=== PATIENT | male | born 1935 | race Caucasian/White ===

== ENCOUNTER 2017-05-08 05:20 | Emergency (ER) | payer MEDICARE, SELFPAY ==
[~2017-05-08] VITALS: Ht 182.9 cm; Wt 68.0 kg
[~2017-05-08 05:20] MED LIST: ALPR.5; ASPI325 PO; ASPI81CH PO; ATOR40TA PO; CARDURA; CHOL10002 PO; CIPR500; CIPR500 PO; CLON.5 PO; CLON1 PO; CLOP75 PO; Cipro500 MG PO; DOXA4 PO; HYDACE5; LISI20 PO; LISI5 PO; LORA.5 PO; LOVA40 PO; OXYACE5T PO; PHENA200 PO; RANI150 PO; ROSU10TA; RXPHEN200 PO; SULTRIDS PO; TAMS.4ER; [UNRECOGNIZED DRUG - OTHER]; [UNRECOGNIZED DRUG - REMARK]
[2018-02-16] MEDS ORDERED: Amiodarone HCl200 MG PO (23:52)
[2018-02-17] MEDS ORDERED: CEPH500 PO (00:21)
== END 2017-05-08 07:22 | disposition home or self-care (01) ==
LOC: ER 05:20
DX: S20.212A Contusion of left front wall of thorax, initial encounter (principal); F41.9 Anxiety disorder, unspecified; F17.200 Nicotine dependence, unspecified, uncomplicated; Z79.899 Other long term (current) drug therapy; Z79.82 Long term (current) use of aspirin; W22.8XXA Striking against or struck by other objects, initial encounter
CPT/HCPCS: 71046; 99283

== ENCOUNTER 2017-05-30 13:37 | Emergency (ER) | payer MEDICARE, SELFPAY ==
[~2017-05-30] VITALS: Ht 185.4 cm; Wt 68.0 kg
[2017-05-30 13:45] LABS: Calcium, Ionized (POC) 1.14 mmol/L (1.10-1.46); Chloride (POC) 104 mmol/L (98-108); Glucose (ISTAT POC) 129 mg/dL (70-99); Potassium (POC) 4.1 mmol/L (3.5-5.5); Sodium (POC) 136 mmol/L (135-148); Total CO2 (POC) 20 mmol/L (21-32)
[2017-05-30 14:18] LABS: BASOPHILS ABSOLUTE AUTO 0.04 K/mm3 (0.00-0.23); BASOPHILS PERCENT AUTO 0 % (0-2); EOSINOPHILS ABSOLUTE AUTO 0.08 K/mm3 (0.00-0.68); EOSINOPHILS PERCENT AUTO 1 % (0-6); Hematocrit 42.6 % (37.0-53.0); IMMATURE GRAN ABSOLUTE AUTO 0.03 K/mm3 (0.00-0.10); IMMATURE GRAN PERCENT AUTO 0 % (0-1); LYMPHOCYTES ABSOLUTE AUTO 2.12 K/mm3 (0.84-5.20); LYMPHOCYTES PERCENT AUTO 21 % (21-46); MONOCYTES ABSOLUTE AUTO 0.71 K/mm3 (0.16-1.47); MONOCYTES PERCENT AUTO 7 % (4-13); Mean Corpuscular HGB 27.2 pg (26.0-34.0); Mean Corpuscular HGB Conc 32.9 g/dL (31.5-36.5); Mean Corpuscular Volume 83 fL (80-100); Mean Platelet Volume 9.7 fL (9.1-12.4); NEUTROPHILS ABSOLUTE AUTO 7.24 K/mm3 (1.96-9.15); NEUTROPHILS PERCENT AUTO 71 % (41-73); Platelet Count 248 K/mm3 (150-400); RDW Coefficient Variation 19.4 % (11.7-14.2); Red Blood Cell Count 5.14 M/mm3 (4.30-5.90); White Blood Cell Count 10.22 K/mm3 (4.00-11.30)
[2017-05-30 14:18] LABS: Source, Urine Voided
[2017-05-30 14:21] LABS: Appearance, Urine Bloody (Clear); Bilirubin, Urine Neg (Neg); Blood, Urine 4+ (Neg); Color, Urine Red (P-Yellow); Glucose Qualitative, Urine Neg (Neg); Ketones, Urine Neg (Neg); Leukocyte Esterase, Urine Neg (Neg); Nitrite, Urine Neg (Neg); Protein, Urine 4+ (Neg); Urobilinogen, Urine NORM (Normal)
[2017-05-30 14:32] LABS: Alanine Aminotransfer (ALT/SGP 27 U/L (12-78); Albumin, Blood 3.1 g/dL (3.4-5.0); Albumin/Globulin Ratio 0.7 (0.8-1.8); Alk Phos 161 U/L (50-136); Anion Gap 11 mmol/L (6-16); Aspartate Aminotrans (AST/SGOT 18 U/L (12-37); Bilirubin, Total 0.6 mg/dL (0.1-1.0); Blood Urea Nitrogen 19 mg/dL (8-24); Bun/Creatinine Ratio 17.1 (12.0-20.0); CO2, Blood 19 mmol/L (21-32); Calcium, Blood 8.6 mg/dL (8.5-10.1); Chloride, Blood 105 mmol/L (98-108); Creatinine, Blood 1.11 mg/dL (0.60-1.20); Globulin, Blood 4.4 g/dL (2.2-4.0); Glomerular Filtration Rate >60 (60-); Glucose, Blood 124 mg/dL (70-99); Potassium, Blood 4.2 mmol/L (3.5-5.5); Sodium, Blood 135 mmol/L (136-145); Total Protein, Blood 7.5 g/dL (6.4-8.2); Troponin I <0.015 ng/mL (0.000-0.040)
[2017-05-30 14:36] LABS: Bacteria Rare /hpf; Red Blood Cells, Urine TNTC /hpf (0-2); Squamous Epithelial Cells Not Seen /hpf (Few)
[2018-02-16] MEDS ORDERED: Amiodarone HCl200 MG PO (23:52)
[2018-02-17] MEDS ORDERED: CEPH500 PO (00:21)
== END 2017-05-30 17:10 | disposition home or self-care (01) ==
LOC: ER 13:37
PROVIDERS: Emergency Medicine
DX: R31.9 Hematuria, unspecified (principal); R33.9 Retention of urine, unspecified; I25.2 Old myocardial infarction; F41.9 Anxiety disorder, unspecified; R42 Dizziness and giddiness; R05 Cough; F17.200 Nicotine dependence, unspecified, uncomplicated; Z79.82 Long term (current) use of aspirin; Z79.899 Other long term (current) drug therapy; Z90.79 Acquired absence of other genital organ(s); Z95.5 Presence of coronary angioplasty implant and graft
CPT/HCPCS: 36415; 51702; 80047; 80053; 81001; 84484; 85014; 85025; 93005; 93010; 96360; 96361; 99283; J7030

== ENCOUNTER 2018-03-04 12:31 | Emergency (ER) | payer MEDICARE, OTHER ==
[~2018-03-04] VITALS: Ht 182.9 cm; Wt 77.1 kg
[~2018-03-04 12:31] MED LIST changes: +Amiodarone HCl200 MG PO; +CEPH500 PO
[2018-03-04 13:03] LABS: Source, Urine Catheter
[2018-03-04 13:15] LABS: Bilirubin, Urine Neg (Neg); Blood, Urine 5+ (Neg); Glucose Qualitative, Urine Neg (Neg); Ketones, Urine Neg (Neg); Leukocyte Esterase, Urine 3+ (Neg); Nitrite, Urine Neg (Neg); Protein, Urine 3+ (Neg); Urobilinogen, Urine NORM (Normal)
[2018-03-04 13:16] LABS: BASOPHILS ABSOLUTE AUTO 0.03 K/mm3 (0.00-0.23); BASOPHILS PERCENT AUTO 1 % (0-2); EOSINOPHILS ABSOLUTE AUTO 0.02 K/mm3 (0.00-0.68); EOSINOPHILS PERCENT AUTO 0 % (0-6); Hematocrit 35.5 % (37.0-53.0); Hemoglobin 11.4 g/dL (13.5-17.5); IMMATURE GRAN ABSOLUTE AUTO 0.03 K/mm3 (0.00-0.10); IMMATURE GRAN PERCENT AUTO 1 % (0-1); LYMPHOCYTES ABSOLUTE AUTO 1.47 K/mm3 (0.84-5.20); LYMPHOCYTES PERCENT AUTO 22 % (21-46); MONOCYTES ABSOLUTE AUTO 0.36 K/mm3 (0.16-1.47); MONOCYTES PERCENT AUTO 5 % (4-13); Mean Corpuscular HGB 24.7 pg (26.0-34.0); Mean Corpuscular HGB Conc 32.1 g/dL (31.5-36.5); Mean Corpuscular Volume 77 fL (80-100); Mean Platelet Volume 9.6 fL (9.1-12.4); NEUTROPHILS ABSOLUTE AUTO 4.72 K/mm3 (1.96-9.15); NEUTROPHILS PERCENT AUTO 71 % (41-73); Platelet Count 229 K/mm3 (150-400); RDW Coefficient Variation 20.3 % (11.7-14.2); RDW Standard Deviation 55.6 fL (35.1-46.3); Red Blood Cell Count 4.62 M/mm3 (4.30-5.90); White Blood Cell Count 6.63 K/mm3 (4.00-11.30)
[2018-03-04 13:28] LABS: Alanine Aminotransfer (ALT/SGP 25 U/L (12-78); Albumin, Blood 2.6 g/dL (3.4-5.0); Albumin/Globulin Ratio 0.6 (0.8-1.8); Alk Phos 154 U/L (50-136); Anion Gap 9 mmol/L (6-16); Aspartate Aminotrans (AST/SGOT 29 U/L (12-37); Bilirubin, Total 0.3 mg/dL (0.1-1.0); Blood Urea Nitrogen 16 mg/dL (8-24); Bun/Creatinine Ratio 13.1 (12.0-20.0); CO2, Blood 21 mmol/L (21-32); Calcium, Blood 8.4 mg/dL (8.5-10.1); Chloride, Blood 105 mmol/L (98-108); Creatinine, Blood 1.22 mg/dL (0.60-1.20); Globulin, Blood 4.1 g/dL (2.2-4.0); Glomerular Filtration Rate >60 (60-); Glucose, Blood 122 mg/dL (70-99); Potassium, Blood 4.2 mmol/L (3.5-5.5); Sodium, Blood 135 mmol/L (136-145); Total Protein, Blood 6.7 g/dL (6.4-8.2)
[2018-03-04 14:02] LABS: Appearance, Urine Hazy (Clear); Color, Urine Yellow (P-Yellow)
[2018-03-04 14:05] LABS: Bacteria Mod /hpf; Red Blood Cells, Urine 25-50 /hpf (0-2); Squamous Epithelial Cells Few /hpf (Few)
== END 2018-03-04 14:50 | disposition home or self-care (01) ==
LOC: ER 12:31
PROVIDERS: Internal Medicine
DX: K59.00 Constipation, unspecified (principal); Z79.899 Other long term (current) drug therapy; Z79.82 Long term (current) use of aspirin; F41.9 Anxiety disorder, unspecified; F17.200 Nicotine dependence, unspecified, uncomplicated
CPT/HCPCS: 74022; 80053; 81001; 85025; 87086; 99284-25

== ENCOUNTER 2018-03-05 11:29 | Emergency (ER) | payer MEDICARE, SELFPAY ==
[~2018-03-05] VITALS: Ht 182.9 cm; Wt 63.5 kg
== END 2018-03-05 14:48 | disposition home or self-care (01) ==
LOC: ER 11:29
DX: K59.00 Constipation, unspecified (principal); N20.0 Calculus of kidney; Z79.899 Other long term (current) drug therapy; Z79.82 Long term (current) use of aspirin; F41.9 Anxiety disorder, unspecified; I25.2 Old myocardial infarction; F17.200 Nicotine dependence, unspecified, uncomplicated
CPT/HCPCS: 74018; 99283-25

== ENCOUNTER 2018-04-02 12:18 | Inpatient (IN) | payer MEDICARE, OTHER ==
[~2018-04-02] VITALS: Ht 185.4 cm; Wt 60.6 kg
[2018-04-02 13:57] LABS: BASOPHILS ABSOLUTE AUTO 0.01 K/mm3 (0.00-0.23); BASOPHILS PERCENT AUTO 0 % (0-2); EOSINOPHILS ABSOLUTE AUTO 0.01 K/mm3 (0.00-0.68); EOSINOPHILS PERCENT AUTO 0 % (0-6); Hematocrit 37.1 % (37.0-53.0); Hemoglobin 11.8 g/dL (13.5-17.5); IMMATURE GRAN ABSOLUTE AUTO 0.05 K/mm3 (0.00-0.10); IMMATURE GRAN PERCENT AUTO 1 % (0-1); LYMPHOCYTES ABSOLUTE AUTO 1.34 K/mm3 (0.84-5.20); LYMPHOCYTES PERCENT AUTO 19 % (21-46); MONOCYTES ABSOLUTE AUTO 0.43 K/mm3 (0.16-1.47); MONOCYTES PERCENT AUTO 6 % (4-13); Mean Corpuscular HGB 24.8 pg (26.0-34.0); Mean Corpuscular HGB Conc 31.8 g/dL (31.5-36.5); Mean Corpuscular Volume 78 fL (80-100); Mean Platelet Volume 9.4 fL (9.1-12.4); NEUTROPHILS ABSOLUTE AUTO 5.41 K/mm3 (1.96-9.15); NEUTROPHILS PERCENT AUTO 75 % (41-73); Platelet Count 312 K/mm3 (150-400); Red Blood Cell Count 4.75 M/mm3 (4.30-5.90); White Blood Cell Count 7.25 K/mm3 (4.00-11.30)
[2018-04-02 14:21] LABS: Albumin, Blood 2.5 g/dL (3.4-5.0); Albumin/Globulin Ratio 0.5 (0.8-1.8); Bilirubin, Total 0.6 mg/dL (0.1-1.0); Bun/Creatinine Ratio 14.8 (12.0-20.0); Creatinine, Blood 2.9 mg/dL (0.60-1.20); Globulin, Blood 4.6 g/dL (2.2-4.0); Total Protein, Blood 7.1 g/dL (6.4-8.2)
[2018-04-02 14:51] LABS: Source, Urine Clean Catch
[2018-04-02 15:03] LABS: Appearance, Urine Cloudy (Clear); Bilirubin, Urine Neg (Neg); Blood, Urine 5+ (Neg); Color, Urine Red (P-Yellow); Glucose Qualitative, Urine Neg (Neg); Ketones, Urine Neg (Neg); Leukocyte Esterase, Urine 3+ (Neg); Nitrite, Urine Neg (Neg); Protein, Urine 2+ (Neg); Urobilinogen, Urine NORM (Normal)
[2018-04-02 15:12] LABS: Red Blood Cells, Urine TNTC /hpf (0-2); White Blood Cells, Urine 50-100 /hpf (0-5)
[2018-04-02 15:13] LABS: Squamous Epithelial Cells Few /hpf (Few)
[2018-04-02 15:15] LABS: Bacteria Mod /hpf
[2018-04-03 05:38] LABS: BASOPHILS ABSOLUTE AUTO 0.02 K/mm3 (0.00-0.23); BASOPHILS PERCENT AUTO 0 % (0-2); EOSINOPHILS ABSOLUTE AUTO 0.01 K/mm3 (0.00-0.68); EOSINOPHILS PERCENT AUTO 0 % (0-6); Hematocrit 33.2 % (37.0-53.0); Hemoglobin 10.5 g/dL (13.5-17.5); IMMATURE GRAN ABSOLUTE AUTO 0.04 K/mm3 (0.00-0.10); IMMATURE GRAN PERCENT AUTO 0 % (0-1); LYMPHOCYTES PERCENT AUTO 12 % (21-46); MONOCYTES ABSOLUTE AUTO 0.63 K/mm3 (0.16-1.47); MONOCYTES PERCENT AUTO 7 % (4-13); Mean Corpuscular HGB 24.4 pg (26.0-34.0); Mean Corpuscular HGB Conc 31.6 g/dL (31.5-36.5); Mean Corpuscular Volume 77 fL (80-100); Mean Platelet Volume 9.3 fL (9.1-12.4); NEUTROPHILS ABSOLUTE AUTO 7.64 K/mm3 (1.96-9.15); NEUTROPHILS PERCENT AUTO 81 % (41-73); Platelet Count 309 K/mm3 (150-400); RDW Coefficient Variation 19.7 % (11.7-14.2); RDW Standard Deviation 55.3 fL (35.1-46.3); Red Blood Cell Count 4.31 M/mm3 (4.30-5.90); White Blood Cell Count 9.44 K/mm3 (4.00-11.30)
[2018-04-03 05:52] LABS: Albumin, Blood 2.3 g/dL (3.4-5.0); Albumin/Globulin Ratio 0.5 (0.8-1.8); Bilirubin, Total 0.3 mg/dL (0.1-1.0); Bun/Creatinine Ratio 16.5 (12.0-20.0); Creatinine, Blood 2.54 mg/dL (0.60-1.20); Globulin, Blood 4.2 g/dL (2.2-4.0); Potassium, Blood 4.9 mmol/L (3.5-5.5); Total Protein, Blood 6.5 g/dL (6.4-8.2)
--- NOTE | 2018-04-03 07:23 | NUR ---
SHIFT SUMMARY 2039 RECEIVED PT TO RM 343 VIA GURNEY FROM ER. PT TO ER VIA EMS WITH C/O CHRONIC CONSTIPATION, URINARY RETENSION, AND KIDNEY STONES. PT TO HAVE LITHOTRIPSY ON THU FOR STONE. RECEIVED REPORT FROM KRISTINA GLEZ, PT WITH BLADDER OVER DISTENSION; STRAIGHT CATH DONE IN ER WITH PINK URINE AND SM CLOTS. GAGE CATH LATER PLACED WITH CL YELLOW OUT AT FIRST WITH PINK URINE TO FOLLOW SINCE THEN. UA OBTAINED AND SENT IN ER SHOWING POSSIBLE UTI. PT GIVEN ROCEPHIN AND ZOFRAN FOR NAUSEA IN ER. PT SENT UP 20G IV TO LW, BUT STARTED LEAKING IMMEDIATELY. NEW 18G IV PLACED TO LFA; PT TOLERATED WELL. PT REPORTED NO BM FOR 6 DAYS, BUT HAD NOT BEEN EATING OR DRINKING FOR ABOUT THAT MANY DAYS WELL. BOWEL CARE ORDERED WELL NGT. PT DECLINED NGT AND SOME OF BOWEL CARE. STARTED WITH "STOOL SOFTNER" FIRST PER PT AND THEN SUPPOSITORY. SM AMT OF HARD FORMED STOOL OUT ON BSC. PT THEN AGREED TO MIRALAX, GIVEN IN APPLE JUICE. SEVERAL HOURS LATER PT VOMITED ALL OF JUICE/MIRALAX. PT THEN AGREED TO NGT. PT TOLERATED NGT PLACEMENT WELL. 100cc DRK BRW LIQUID STOOL OUT. PT RESTING QUIETLY AT THIS TIME. BED ALARM ON FOR SAFETY. CALL LT IN REACH.
[2018-04-03 12:23] LABS: Magnesium, Blood 2.2 mg/dL (1.6-2.4)
--- NOTE | 2018-04-03 18:17 | NUR ---
SHIFT SUMMARY NENA WAS FEELING VERY ILL AT THE BEGINNING OF THE SHIFT. HOWEVER, NG TUBE WAS PLACED JUST BEFORE SHIFT CHANGE BY NIGHT RN AND SUCTION (LOW INTERMITTENT)STARTED AT 0700. WITHIN FIRST 2 HOURS, HAD 400ML OUT AND HE WAS FEELING MUCH BETTER. GAGE INTACT AND DRAINING WELL WITH RED URINE (THIS HAS BEEN A PROBLEM FOR HIM). BELLY VERY TIGHT AND FIRM, BUT PT LOOKING MUCH MORE COMFORTABLE. PT NOW ON CLEARS DIET AND TOLERATIGN WELL. MIRALAX AND SUPPOSITORY GIVEN TO ASSIST PT TO HAVE BEM. SBA TO FOR ABD XR THIS MORNING. TRIALING ON CLAMPED NGT AT THIS TIME, TOLERATING WELL SO FAR. STATES PAINFUL BUT DECLINES ANYTHING BUT TYLENOL. TPN STARTED, TOLERATING WELL. CBGS Q6 INITIATED. WCTM
--- NOTE | 2018-04-04 04:41 | NUR ---
SHIFT SUMMARY PT ADMITTED FOR ACUTE RENAL FAILURE. DNR. CLEAR LIQUID DIET. CATHETER FOR RETENTION WITH CHRONIC STONES. PT HAS LITHOTRIPSEY IN [place] SCHEDULED FOR NEXT WEEKS. CBG Q 6 HRS UNTIL STABLE OF IV NUTRITION, PT IS STABLE AND ON IV NUTRITION, WILL CHECK AGAIN THIS AM JUST TO CONFIRM. PPN AT 96 MLS/HR. NG TUBE WITH LOW INTERMITTENT SUCTION 18G IV TO L FA. MEDS WHOLE WITH WATER. 1 PERSON ASSIST TO BSC. LOVENOX FOR DVT PROPHYLAXIS. PT PRESENTED TO THE ED WITH COMPLAINTS OF ABD PAIN AND DISTENTION, NAUSEA AND VOMITING. PT HAS A HISTORY OF CHRONIC CONSTIPATION AND KEDNEY STONES. THE PT REPORTED NOT HAVING HAD A MB FOR 6 DAYS. PER REPORT THE PT S/SX ARE LIKELY SECONDARY TO AN ILEUS. NO DEFINITE OBSTRUCTION NOTED. THE PT IS SCHEDULED FOR KIDNEY STONE REMOVAL ON 04/07/18 WITH STENT REMOVAL 1 WEEK LATER. THE PT NOTIBLY DISLODGED NG TUBE MULTIPLE TIMES SO FAR THIS SHIFT PULLING AT THE TUBE AND HAVING TO HAVE TUBE RE-ADVANCE THROUGHOUT THE NIGHT. PT REPORTED PAIN TO NOSE AND THROAT SECONDARY TO THIS AND MEDICATED PER EMAR. FINAL TIME OF ATTEMPTING TO RE-ADVANCE TUBE, ASKED FOR ASSISTANCE AND DYLAN ZAYAS ADVANCED TUBE AND ASSISTED WITH TAPE PLACEMENT. THE PT WAS STRUGGLING TO SLEEP BUT EVENTUALLY FELL ASLEEP AFTER TUBE IN PLACE, AND PAIN MEDICATION. PT APPEARS TO BE SLEEPING COMFORTABLY AT THIS TIME WITH NO APPARENT SIGNS OF ACUTE DISTRESS. PT DID HAVE SEVERAL SMALL BMS TODAY. ABLE TO MAKE NEEDS KNOWN AND CALL LIGHT IN REACH.
[2018-04-04 05:26] LABS: BASOPHILS ABSOLUTE AUTO 0.01 K/mm3 (0.00-0.23); BASOPHILS PERCENT AUTO 0 % (0-2); EOSINOPHILS PERCENT AUTO 0 % (0-6); Hematocrit 31.3 % (37.0-53.0); Hemoglobin 10.2 g/dL (13.5-17.5); IMMATURE GRAN ABSOLUTE AUTO 0.06 K/mm3 (0.00-0.10); IMMATURE GRAN PERCENT AUTO 1 % (0-1); LYMPHOCYTES ABSOLUTE AUTO 0.98 K/mm3 (0.84-5.20); LYMPHOCYTES PERCENT AUTO 10 % (21-46); MONOCYTES ABSOLUTE AUTO 0.64 K/mm3 (0.16-1.47); MONOCYTES PERCENT AUTO 6 % (4-13); Mean Corpuscular HGB 25.2 pg (26.0-34.0); Mean Corpuscular HGB Conc 32.6 g/dL (31.5-36.5); Mean Corpuscular Volume 77 fL (80-100); Mean Platelet Volume 9.3 fL (9.1-12.4); NEUTROPHILS ABSOLUTE AUTO 8.45 K/mm3 (1.96-9.15); NEUTROPHILS PERCENT AUTO 83 % (41-73); Platelet Count 302 K/mm3 (150-400); RDW Coefficient Variation 19.1 % (11.7-14.2); RDW Standard Deviation 53.8 fL (35.1-46.3); Red Blood Cell Count 4.05 M/mm3 (4.30-5.90); White Blood Cell Count 10.14 K/mm3 (4.00-11.30)
[2018-04-04 06:16] LABS: Alanine Aminotransfer (ALT/SGP 16 U/L (12-78); Albumin, Blood 2.2 g/dL (3.4-5.0); Albumin/Globulin Ratio 0.5 (0.8-1.8); Alk Phos 150 U/L (50-136); Anion Gap 10 mmol/L (6-16); Aspartate Aminotrans (AST/SGOT 18 U/L (12-37); Bilirubin, Total 0.7 mg/dL (0.1-1.0); Blood Urea Nitrogen 48 mg/dL (8-24); Bun/Creatinine Ratio 21.8 (12.0-20.0); CO2, Blood 24 mmol/L (21-32); Calcium, Blood 9.1 mg/dL (8.5-10.1); Chloride, Blood 103 mmol/L (98-108); Globulin, Blood 4.1 g/dL (2.2-4.0); Glomerular Filtration Rate 31 (60-); Glucose, Blood 133 mg/dL (70-99); Magnesium, Blood 2.2 mg/dL (1.6-2.4); Phosphorus, Blood 3.4 mg/dL (2.5-4.9); Potassium, Blood 4.3 mmol/L (3.5-5.5); Sodium, Blood 137 mmol/L (136-145); Total Protein, Blood 6.3 g/dL (6.4-8.2)
--- NOTE | 2018-04-04 20:29 | NUR ---
DVT PROPHYLAXIS PATIENT REFUSED SCD BOOTS BUT AGREED TO ELIZABETH YBARRA
--- NOTE | 2018-04-05 04:30 | NUR ---
SHIFT SUMMARY PT IS A&O X4, STANDBY ASSIST, HAS AN NG TUBE @ LOW INTERMITTENT SUCTION (PROFUSE DRAINAGE DURING THIS SHIFT - DK. BROWNISH FLUID). PT HAS A CHRONIC GAGE, PATENT AND DRAINING. DR HAS ORDERED ELIZABETH HOSE (NOT APPLIED YET, PT SLEEPING - PT HAS HX OF REFUSING SCD'S, WILL TRY TO APPLY). PT HAS A PARACENTESIS SCHEDULED TODAY. PT HAS A KIDNEY STONE REMOVAL SCHEDULED AT ANOTHER FACILITY ON 04/07, WITH A STENT REMOVAL 1 WEEK LATER. HE LIVES AT HOME WITH HIS SPOUSE. HX: A-FIB, CAD, HTN, MALNUTRITION, BPH, KIDNEY STONES. LAST BM 04/03.
[2018-04-05 04:53] LABS: BASOPHILS ABSOLUTE AUTO 0.01 K/mm3 (0.00-0.23); BASOPHILS PERCENT AUTO 0 % (0-2); EOSINOPHILS PERCENT AUTO 0 % (0-6); Hematocrit 33.2 % (37.0-53.0); Hemoglobin 10.6 g/dL (13.5-17.5); IMMATURE GRAN ABSOLUTE AUTO 0.05 K/mm3 (0.00-0.10); IMMATURE GRAN PERCENT AUTO 1 % (0-1); LYMPHOCYTES PERCENT AUTO 11 % (21-46); MONOCYTES ABSOLUTE AUTO 0.88 K/mm3 (0.16-1.47); MONOCYTES PERCENT AUTO 8 % (4-13); Mean Corpuscular HGB 24.8 pg (26.0-34.0); Mean Corpuscular HGB Conc 31.9 g/dL (31.5-36.5); Mean Corpuscular Volume 78 fL (80-100); NEUTROPHILS ABSOLUTE AUTO 8.95 K/mm3 (1.96-9.15); NEUTROPHILS PERCENT AUTO 81 % (41-73); Platelet Count 318 K/mm3 (150-400); RDW Coefficient Variation 19.2 % (11.7-14.2); RDW Standard Deviation 54.3 fL (35.1-46.3); Red Blood Cell Count 4.28 M/mm3 (4.30-5.90); White Blood Cell Count 11.09 K/mm3 (4.00-11.30)
[2018-04-05 05:36] LABS: Albumin, Blood 2.1 g/dL (3.4-5.0); Bun/Creatinine Ratio 25.5 (12.0-20.0); Calcium, Blood 9.3 mg/dL (8.5-10.1); Creatinine, Blood 1.88 mg/dL (0.60-1.20); Magnesium, Blood 2.2 mg/dL (1.6-2.4); Phosphorus, Blood 2.5 mg/dL (2.5-4.9); Potassium, Blood 3.9 mmol/L (3.5-5.5)
[2018-04-05 05:38] LABS: Albumin/Globulin Ratio 0.5 (0.8-1.8); Bilirubin, Total 0.4 mg/dL (0.1-1.0); Globulin, Blood 4.1 g/dL (2.2-4.0); Total Protein, Blood 6.2 g/dL (6.4-8.2)
--- NOTE | 2018-04-05 08:57 | NUR ---
PATIENT DID NOT EAT BREAKFAST THIS SHIFT. PATIENT DECLINED BREAKFST WHEN I BROUGHT IT INTO ROOM. PATIENT STATED TO ME THAT HE WAS NPO AFTER MIDNIGHT LAST NIGHT FOR A PROCEDURE TODAY. I CHECKED WITH NURSE AND THAT WAS NOT THE CASE. I LET PATIENT KNOW THAT HE COULD EAT AND PATIENT STILL DECLINED. TRAY WAS REMOVED FROM ROOM. RN NOTIFIED.
[2018-04-05 09:48] LABS: International Normalized Ratio 1.03; Prothrombin Time Results 10.9 Sec (9.7-11.5)
--- NOTE | 2018-04-05 11:31 | NUR ---
PT TO IMAGING FOR PARACENTESIS.
--- NOTE | 2018-04-05 13:03 | NUR ---
[place] [facility] [place] to care on 04/06/2018. Tamra Roland
[2018-04-05 13:07] LABS: Automated BF RBC Count 0.004 M/mm3 (0-0); Automated BF WBC Count 1.064 K/mm3 (0-999); Body Fluid WBC Count 1064 /mm3 (0-999); RBC Count, Body Fluid 4000 /mm3 (0-0)
[2018-04-05 13:20] LABS: Albumin, Body Fluid 1.8 g/dL; Glucose, Body Fluid 93 mg/dL; Lactate Dehydrogenase, Body Fl 178 U/L; Protein, Body Fluid 4.2 g/dL
[2018-04-05 13:49] LABS: Appearance, Body Fluid Hazy (Clear); Color, Body Fluid Yellow (None-Yellow); Total Cell Count, Body Fluid 100
[2018-04-05 14:12] LABS: pH, Body Fluid 7.9
--- NOTE | 2018-04-06 04:39 | NUR ---
SHIFT SUMMARY PT SLEPT FAIR, WOKE UP CONFUSED AT ONE POINT NOT REMEMBERING WHERE HE WAS. REDIRECTS EASILY. PT TPN INFUSING WITHOUT DIFFICULTY. PT NG TO INTERMITTENT SUCTION, NO OUTPUT NOTED THIS SHIFT. PT PULLED NG TUBE OUT AT AROUND 4 THIS AM. HOSPITALIST NOTIFIED AND ORDER RECEIVED TO JUST LEAVE NG TUBE OUT. PT TOLERATED BEEF BROTH AND APPLE JUICE WELL DURING THE NIGHT PRIOR TO PULLING NG TUBE OUT. DENIES ANY NAUSEA. PT IS STILL REFUSING BOWEL CARE. WILL CONTINUE TO MONITOR.
[2018-04-06 05:29] LABS: BASOPHILS ABSOLUTE AUTO 0.02 K/mm3 (0.00-0.23); BASOPHILS PERCENT AUTO 0 % (0-2); EOSINOPHILS PERCENT AUTO 0 % (0-6); Hematocrit 31.6 % (37.0-53.0); Hemoglobin 10.3 g/dL (13.5-17.5); IMMATURE GRAN ABSOLUTE AUTO 0.04 K/mm3 (0.00-0.10); IMMATURE GRAN PERCENT AUTO 0 % (0-1); LYMPHOCYTES ABSOLUTE AUTO 1.26 K/mm3 (0.84-5.20); LYMPHOCYTES PERCENT AUTO 12 % (21-46); MONOCYTES ABSOLUTE AUTO 0.88 K/mm3 (0.16-1.47); MONOCYTES PERCENT AUTO 9 % (4-13); Mean Corpuscular HGB 24.8 pg (26.0-34.0); Mean Corpuscular HGB Conc 32.6 g/dL (31.5-36.5); Mean Corpuscular Volume 76 fL (80-100); Mean Platelet Volume 9.4 fL (9.1-12.4); NEUTROPHILS PERCENT AUTO 79 % (41-73); Platelet Count 313 K/mm3 (150-400); RDW Coefficient Variation 18.8 % (11.7-14.2); RDW Standard Deviation 52.2 fL (35.1-46.3); Red Blood Cell Count 4.15 M/mm3 (4.30-5.90)
[2018-04-06 05:55] LABS: Bun/Creatinine Ratio 30.5 (12.0-20.0); Calcium, Blood 8.9 mg/dL (8.5-10.1); Creatinine, Blood 1.9 mg/dL (0.60-1.20); Magnesium, Blood 2.2 mg/dL (1.6-2.4); Phosphorus, Blood 2.2 mg/dL (2.5-4.9)
[2018-04-06 05:58] LABS: Albumin/Globulin Ratio 0.5 (0.8-1.8); Bilirubin, Total 0.5 mg/dL (0.1-1.0); Globulin, Blood 3.9 g/dL (2.2-4.0); Total Protein, Blood 5.9 g/dL (6.4-8.2)
--- NOTE | 2018-04-06 14:58 | NUR ---
THE [facility] PREFERENCE FOR REHAB IS [facility]
--- NOTE | 2018-04-06 16:15 | NUR ---
PHYSICAL THERAPY CALLED ME IN AND REPORTED PT HAD PASSED OUT WHEN GETTING OUT OF BED TO [facility] [place]. PT WITH EYES OPEN BUT SLOW TO RESPOND WHEN I ARRIVED. ATTEMPTED TO GET A SITTING BP BUT WAS UNABLE TO DUE TO NEEDING TO GET BACK INTO BED. BP 117/56 AND HR OF 84 WHEN BACK INTO BED. PT AWAKE AND CONVERSATING. PT HAD SMALL AMOUNT OF STOOL IN ATTENDS THAT NOTED TO BE BROWN WITH BLOOD STREAKS, PT DID HAVE A HARD BM THIS AM THAT HE DID STRAIN FOR. DR KAPLAN CALLED AND NOTIFIED. PER DR KAPLAN CONT TO MONITOR, TELE ORDERED.
--- NOTE | 2018-04-06 16:40 | NUR ---
TELEMETRY CONFIRMED WITH PCU ACID STRENGTH INSPECTOR. RATE AND RHYTHM IS NS RHYTHM AT 66 BPM.
--- NOTE | 2018-04-06 16:41 | NUR ---
PT IS MORE CONFUSED TODAY THAN HE WAS YESTERDAY, 04/05/18. HE REPORTED HAVING HALLUCINATIONS LAST NIGHT. HE ATE BREAKFAST AND LUNCH TODAY AND TOLERATED THE HIS CLEAR LIQUID DIET WELL. NO COMPLAINTS OF NAUSEA OR VOMITTING TODAY. PT RECIEVED A BED BATH TODAY. DURING HIS TIME WITH PT, HE PASSED OUT WHILE TRANSFERRING. TELEMETRY WAS ORDERED TO MONITOR HIS RATE AND RHYTHM FOLLOWING THAT EPISODE. WILL CONTINUE TO MONITOR PT.
--- NOTE | 2018-04-06 18:36 | NUR ---
DR. COVARRUBIAS'S ANSWERING SERVICE NOTIFIED OF CONSULT. 04/06/18 18:37 NEWTON GARCIA
--- NOTE | 2018-04-07 03:59 | NUR ---
NO CHANGES. PT SEEMS CONFUSED, BED ALARM ON. NO C/O PAIN. MEDICATED PER EMAR. CALL LIGHT IN REACH
[2018-04-07 06:05] LABS: Phosphorus, Blood 3.6 mg/dL (2.5-4.9); Triglycerides 68 mg/dL (30-160)
--- NOTE | 2018-04-07 08:30 | NUR ---
PT WAS SLEEPING, AWOKE. HE WAS IRRITABLE. ASSISTED HIM TO PROPER POSITION IN BED. STATES SOME PAIN IN MID LOW BACK. DENIES THIS BEING NORMAL, CHRONIC. REFUSED ANY MEDS FOR PAIN. STATES SAW 3 CATS IN WINDOW LAST NITE OR IN AM. NOT SURE WHEN. IT ANNOYED HIM. THEY WOULD NOT LEAVE. ABLE TO TELL ME HE WAS 42 Y/O. 50+ YRS, 2 CHILDREN IN THEIR 50'S. WHEN RE-ASK ABOUT AGE, SAME ANS OF 42. H/R REG, NO MURMER NOTED. PER TELE: NSR AT 65. LUNGS CLEAR, RESP EASY, UNLABORED ON RA. BT X4 LAST BM YEST. VOIDS GAGE CATH. CLEAR YELLOW FLUID. 2 ASST TO BSC. BED IN LOW POSITION,, CALL LITE IN REACH, CONFUSED. BED ALARM ON FOR SAFETY
[2018-04-07 08:45] LABS: BASOPHILS ABSOLUTE AUTO 0.02 K/mm3 (0.00-0.23); BASOPHILS PERCENT AUTO 0 % (0-2); EOSINOPHILS ABSOLUTE AUTO 0.01 K/mm3 (0.00-0.68); EOSINOPHILS PERCENT AUTO 0 % (0-6); Hematocrit 30.7 % (37.0-53.0); Hemoglobin 10.1 g/dL (13.5-17.5); IMMATURE GRAN ABSOLUTE AUTO 0.05 K/mm3 (0.00-0.10); IMMATURE GRAN PERCENT AUTO 0 % (0-1); LYMPHOCYTES ABSOLUTE AUTO 1.13 K/mm3 (0.84-5.20); LYMPHOCYTES PERCENT AUTO 10 % (21-46); MONOCYTES ABSOLUTE AUTO 1.02 K/mm3 (0.16-1.47); MONOCYTES PERCENT AUTO 9 % (4-13); Mean Corpuscular HGB 25.2 pg (26.0-34.0); Mean Corpuscular HGB Conc 32.9 g/dL (31.5-36.5); Mean Corpuscular Volume 77 fL (80-100); Mean Platelet Volume 9.4 fL (9.1-12.4); NEUTROPHILS PERCENT AUTO 81 % (41-73); Platelet Count 263 K/mm3 (150-400); RDW Coefficient Variation 18.5 % (11.7-14.2); RDW Standard Deviation 51.3 fL (35.1-46.3); Red Blood Cell Count 4.01 M/mm3 (4.30-5.90); White Blood Cell Count 11.43 K/mm3 (4.00-11.30)
[2018-04-07 09:01] LABS: Albumin, Blood 1.8 g/dL (3.4-5.0); Anion Gap 8 mmol/L (6-16); Blood Urea Nitrogen 64 mg/dL (8-24); Bun/Creatinine Ratio 34.2 (12.0-20.0); CO2, Blood 25 mmol/L (21-32); Calcium, Blood 8.6 mg/dL (8.5-10.1); Chloride, Blood 96 mmol/L (98-108); Creatinine, Blood 1.87 mg/dL (0.60-1.20); Glomerular Filtration Rate 37 (60-); Glucose, Blood 107 mg/dL (70-99); Phosphorus, Blood 3.5 mg/dL (2.5-4.9); Potassium, Blood 4.3 mmol/L (3.5-5.5); Sodium, Blood 129 mmol/L (136-145)
--- NOTE | 2018-04-07 17:51 | NUR ---
PT PLEASANT THIS KIARA. DID APPOLOGIZE FOR WAKING UP THIS AM BUT EXPLAINED IS NECESSARY AND WILL HAPPEN EACH SHIFT. HE STATES UNDERSTANDS. HAD NEAR SYNCOPAL EPISODE THIS AFT AT 1540. BP DROPPED TO 70/40 WHEN STANDING, DR NOTIFIED. ORDERS FOR IV FLUIDS. ALSO PPN STOPPED AND FOOD ORDERS STARTED. PT NOTIFIED. NO OTHER CONCERNS AT THIS TIME. BED IN LOW POSITION, CALL LITE IN REACH, CALLS APPROP
[2018-04-08 05:30] LABS: Hematocrit 30.1 % (37.0-53.0); Mean Corpuscular HGB 25.1 pg (26.0-34.0); Mean Corpuscular HGB Conc 33.2 g/dL (31.5-36.5); Mean Corpuscular Volume 75 fL (80-100); Mean Platelet Volume 9.6 fL (9.1-12.4); Platelet Count 279 K/mm3 (150-400); RDW Coefficient Variation 18.6 % (11.7-14.2); RDW Standard Deviation 50.5 fL (35.1-46.3); Red Blood Cell Count 3.99 M/mm3 (4.30-5.90)
[2018-04-08 05:58] LABS: Albumin, Blood 1.8 g/dL (3.4-5.0); Anion Gap 11 mmol/L (6-16); Blood Urea Nitrogen 64 mg/dL (8-24); Bun/Creatinine Ratio 32.7 (12.0-20.0); CO2, Blood 24 mmol/L (21-32); Calcium, Blood 8.2 mg/dL (8.5-10.1); Chloride, Blood 99 mmol/L (98-108); Creatinine, Blood 1.96 mg/dL (0.60-1.20); Glomerular Filtration Rate 35 (60-); Glucose, Blood 91 mg/dL (70-99); Phosphorus, Blood 3.7 mg/dL (2.5-4.9); Potassium, Blood 4.3 mmol/L (3.5-5.5); Sodium, Blood 134 mmol/L (136-145)
--- NOTE | 2018-04-08 06:27 | NUR ---
SHIFT SUMMARY [place] A/O NO C/O HALLUCINATIONS. BP LOW AT 97/47 JARAD HOUSING PROPERTY MANAGER MADE AWARE. TELE SHOWED NSR @ 69 C 1[address] DEGREE BLOCK PER JOURNEYMAN ELECTRICIAN. MERARI GREGORIO. REPOSITIONED PRN. SAID HE COUGHED REALLY HARD AND IT MADE HIM GAG AND HE VOMITED SOME UNDIGESTED FOOD AND DARK GREEN LIQ ALL OVER GOWN. DENIED ANY UPSET STOMACH OR NAUSEA. BED ALARM IN USE. HE WAS ABLE TO SLEEP T/O NOC.
--- NOTE | 2018-04-08 16:12 | NUR ---
SHIFT SUMMARY PT A&O X3. HAVING SOME HALLUCINATIONS. STATES HE SEES FOOD ON HIS BEDSIDE TABLE AND WHEN HE REACHS OUT FOR IT IT DISAPPEARS. DENIES ANY PAIN, SOB, OR NAUSEA. REFUSED BOWEL CARE THIS SHIFT. STATES HE HAD BM YESTERDAY. FAMILY AT THE BEDSIDE FOR SOME OF THE SHIFT. SECOND BAG OF IV FLUIDS FINISHED. IV SL. RN CALLED ONCOLOGY AND FOLLOWED UP WITH PULMONARY CONSULT TODAY. ORTHOSTATIC VS DONE THIS AM DUE TO SOME HYPOTENSION. PT BP DROPPED TO 67/38 WHEN STANDING. PATIENT STATES HE FELT LIGHT HEADED. ONCE BACK IN BED BP WENT BACK UP TO 103/55. DR. KAPLAN NOTIFIED. RESTED T/O SHIFT. HAS NOT EATEN MUCH THIS SHIFT. BED ALARM ON, CALL LIGHT WITHIN REACH. NO OTHER ACUTE CHANGES, RN WILL CONTINUE TO MONITOR.
[2018-04-09 05:31] LABS: BASOPHILS ABSOLUTE AUTO 0.01 K/mm3 (0.00-0.23); BASOPHILS PERCENT AUTO 0 % (0-2); EOSINOPHILS PERCENT AUTO 0 % (0-6); Hematocrit 32.1 % (37.0-53.0); Hemoglobin 10.4 g/dL (13.5-17.5); IMMATURE GRAN ABSOLUTE AUTO 0.07 K/mm3 (0.00-0.10); IMMATURE GRAN PERCENT AUTO 1 % (0-1); LYMPHOCYTES ABSOLUTE AUTO 1.03 K/mm3 (0.84-5.20); LYMPHOCYTES PERCENT AUTO 9 % (21-46); MONOCYTES ABSOLUTE AUTO 1.05 K/mm3 (0.16-1.47); MONOCYTES PERCENT AUTO 9 % (4-13); Mean Corpuscular HGB Conc 32.4 g/dL (31.5-36.5); Mean Corpuscular Volume 77 fL (80-100); Mean Platelet Volume 9.7 fL (9.1-12.4); NEUTROPHILS ABSOLUTE AUTO 9.88 K/mm3 (1.96-9.15); NEUTROPHILS PERCENT AUTO 82 % (41-73); Platelet Count 261 K/mm3 (150-400); RDW Coefficient Variation 18.7 % (11.7-14.2); RDW Standard Deviation 52.1 fL (35.1-46.3); Red Blood Cell Count 4.16 M/mm3 (4.30-5.90); White Blood Cell Count 12.04 K/mm3 (4.00-11.30)
[2018-04-09 05:54] LABS: Albumin, Blood 1.7 g/dL (3.4-5.0); Anion Gap 12 mmol/L (6-16); Blood Urea Nitrogen 70 mg/dL (8-24); Bun/Creatinine Ratio 36.6 (12.0-20.0); CO2, Blood 21 mmol/L (21-32); Calcium, Blood 8.2 mg/dL (8.5-10.1); Chloride, Blood 102 mmol/L (98-108); Creatinine, Blood 1.91 mg/dL (0.60-1.20); Glomerular Filtration Rate 36 (60-); Glucose, Blood 128 mg/dL (70-99); Phosphorus, Blood 4.1 mg/dL (2.5-4.9); Potassium, Blood 4.5 mmol/L (3.5-5.5); Sodium, Blood 135 mmol/L (136-145)
--- NOTE | 2018-04-09 06:11 | NUR ---
SHIFT SUMMARY PT HAVING SOME HALLUCINATIONS STILL AT TIMES. SAYS HE KNOWS WHEN THEY ARE HALLUCINATIONS AND WILL TALK TO HIMSELF AT TIMES. GAGE DRAINING. HE WAS ABLE TO SLEEP T/O NIGHT. CLINIMIX INFUSING. BED ALARM IN USE.
--- NOTE | 2018-04-09 11:07 | NUR ---
Initial Visit: Pt is seen for advanced care planning and symptom management. Patient is alert, oriented. He is sitting up in bed, visiting with family. I introduce myself and explain my role here in the hospital. Granddaughters and a daughter are present, along with two small children. Pt reviewed his symptoms with me: He reports having 4/10 pain across his abd. He states that he is not anxious at this time. He has been having some nausea, dizziness upon standing, extreme weakness upon standing, some falls, hallucinations (audiory and visual), low appetite (not hungry at all, and food tastes terrible), and he is experiencing difficulty swallowing. During this time, family is present with small children, so I do not comment on his symptoms right away. Discussed prognosis. Family is aware of newly found cancer cells. I tell them that in the doctor's note that this is not treatable due to his age and other problems. Discuss hospice. Pt does not want hospice because he does not want people "just sitting in my home." I offer that hospice comes 1-2 times per week for visits - maybe for 1 hour or so - he states that this would be okay. Family with small children get up and leave. I review his symptoms with him once more and advise that these symptoms are present toward end of life. I instruct that it seems that he has started his end of life process. He says, "I know. I told my that before I came to the hospital." Allowed time for patient to reflect on this information. Therapeutic listening employed while patient talks for a while. Will follow up with patient later. Will remain available. Reviewed with nurse, Yulia.
--- NOTE | 2018-04-09 16:25 | NUR ---
Pt is getting new IV for clinimix at time of visit. I came back to the room for a visit on request of Dr. Nielsen. She reports that she has sterling talked to the patient and family; has questions about hospice. is friendly, seems upset. She has just gotten the news that patient has cancer and has declined [or does not have] available treatments. Reviewed with . She seems like she does not have enough time at this moment to talk: She would like to speak to a social media executive to discuss discharge with hospice. She was hoping that the patient would be able to go to rehab to get stronger since she is unable to take care of him at home by herself. Call placed to Ivelisse, inventory control planner. When Ivelisse was finished the ducked out of the hospital quickly and I was unable to talk to her again today. Will follow up with family tomorrow.
--- NOTE | 2018-04-09 17:21 | NUR ---
SHIFT SUMMARY PT HAS HAD NO ACUTE CHANGES THIS SHIFT, UNABLE TO AMBULATE PER PHYSICAL THERAPY, FAMILY AT BEDSIDE T/O MOST OF SHIFT, PT APPEARS TO BE SLEEPING AT THIS TIME, WILL CONT TO MONITOR UNTIL REPORT GIVEN TO NOC RN.
--- NOTE | 2018-04-10 04:06 | NUR ---
SHIFT SUMMARY PT REMAINED IN BED THROUGHOUT THE SHIFT. CONFUSED THROUGHOUT THE NIGHT. ABLE TO REORIENT. DENIED PAIN. GAGE IN PLACE, PATENT AND DRAINING. TOOK BEDTIME MEDICATIONS BUT OTHERWISE REFUSED TO EAT OR DRINK ANYTHING THROUGHOUT THE NIGHT. SLIGHTLY NAUSEATED AT START OF SHIFT, MEDICATED JUST BEFORE SHIFT CHANGE FOR NAUSEA, IMPROVED SOON AFTER. SLEPT OFF AND ON, USUALLY ONLY FOR 2-3 HOURS AT A TIME. STILL NO BM THIS SHIFT, REFUSED ANY BOWEL CARE. BP SLIGHTLY HYPOTENSIVE THIS MORNING. PT ASYMPTOMATIC. OTHERWISE VSS. PT RESTING IN BED AT THIS TIME.
--- NOTE | 2018-04-10 14:56 | NUR ---
Pt is laying in bed, appears to be sleeping. Family is gathered. states that they are now ready for comfort care. She states that patient is forcing himself to eat for benefit of family and that he throws it up afterward. She does agree to comfort care at this time. Needs reviewed with nurse, Yulia. Orders are placed. Will remain available.
--- NOTE | 2018-04-10 16:43 | NUR ---
SHIFT SUMMARY NEW COMFORT CARE ORDER THIS SHIFT, PT HAS BEEN INCREASINGLY CONFUSED AND HAVING INCREASED HALLUCINATIONS. PT STATES HE IS IN THE HOSPITAL BUT CONTINUES TO REPORT SEEING THINGS THAT ARENT THERE AND HAS SET OFF BED ALARM SEVERAL TIMES REQUESTING THAT WE "HELP HIM OUT IF THE TRUCK". PT IS BEDRESTING WATCHING TV AT THIS TIME, WILL CONT TO MONITOR UNTIL REPORT GIVEN TO NOC RN.
--- NOTE | 2018-04-10 23:38 | NUR ---
PT HAS BEEN SLEEPING UP UNTIL WAKING UP JUST NOW FEELING NAUSEATED. REQUESTING AN EMESIS BAG. NO EMESIS SO FAR. ZOFRAN GIVEN, PT REPORTS FEELING "BETTER". WILL CONTINUE TO MONITOR.
--- NOTE | 2018-04-11 05:01 | NUR ---
SHIFT SUMMARY PT SLEPT THROUGH MOST OF THE SHIFT. WOKE SEVERAL TIMES, ONE TIME VERY NAUSEATED. MEDICATED W/ ZOFRAN 4 MG. NAUSEA RESOLVED. VERY CONFUSED WHEN AWAKE. PULLING ON GAGE CATHETER AND ATTEMPTING TO GET OOB. MEDICATED W/ 1 MG IV ATIVAN. PT VERY SLEEPY FOLLOWING ATIVAN. DENIES PAIN. RESTING COMFORTABLY AT THIS TIME. GAGE CATH IN PLACE. DRAINING DARK YELLOW URINE. NO OTHER ACUTE CHANGES. WILL CONTINUE TO MONITOR.
--- NOTE | 2018-04-11 12:25 | NUR ---
HE IS VERY SLEEPY, AROUSABLE BUT FALLS RIGHT BACK TO SLEEP. HE LOOKS GENERALLY COMFORTABLE. HE WAS GIVEN ATIVAN EARLIER. NO FAMILY PRESENT AT THIS TIME.
--- NOTE | 2018-04-11 12:28 | NUR ---
BEDBATH AND CATH CARE DONE. REPOSITIONED. HE MOSTLY SLEPT THROUGH CARE. HE LOOKS VERY COMFORTABLE WHEN WE FINISHED. THIS IS A 10 AM NOTE.
--- NOTE | 2018-04-11 12:30 | NUR ---
1200 NOTE HE IS STILL SLEEPY, BUT OPENING HIS EYES MORE, MOVING IN BED SLIGHTLY. RESPIRATIONS HAVE BEEN REGULAR ALL MORNING. THEY ARE SHALLOW AND 30/MIN. INSPITE OF THE RATE, HE LOOKS COMFORTABLE. NO FAMILY STILL AT THIS TIME. WILL CONTINUE TO MONITOR COMFORT.
--- NOTE | 2018-04-11 12:58 | NUR ---
Pt appears comfortable. Adjusted legs in the bed: he had one leg between hospital rails. Nurse, Germaine repositions and tucks pillows to prevent injury. Discussed symptoms. Germaine reports that patient has been comfortable for some time now. Discussed roxanol for resp over 30. Will remain available. No secretions, anxiety noted.
--- NOTE | 2018-04-11 14:26 | NUR ---
1400 NOTE HE REMAINS UNCHANGED. CLOUDY YELLOW URINE WITH SEDIMENT IN GAGE DRAINAGE SET. HE SLEEPS. THE PALLIATIVE CARE NURSE WAS WITH HIM EARLIER AND NOW HIS FAMILY IS WITH HIM. THEY ARE TALKING AMONGST THEMSELVES. COFFEE MADE AND WATER PITCHER REFILLED. COMFORT CARE CART IS FULLY STOCKED.
--- NOTE | 2018-04-11 17:25 | NUR ---
HE BECAME MORE RESTLESS. HE ACTUALLY SAID 1 SHORT SENTENCE TO HIS ABOUT HIS CLOTHES. RONIT WAS GIVEN X1.
--- NOTE | 2018-04-11 18:42 | NUR ---
1800 NOTE HE IS SLEEPING. RESPIRATIONS STILL 30/MIN. HE OCCASIONALLY JERKS AN ARM OR A LEG. FAMILY HAS ALL GONE HOME. BED ALARM ON ALL DAY FOR SAFETY, THOUGH IT HAS NEVER GONE OFF.
--- NOTE | 2018-04-12 04:04 | NUR ---
SHIFT SUMMARY PT SLEPT THIS ENTIRE SHIFT. NO PRN MEDICATIONS GIVEN. RESPIRATIONS CONTINUE TO BE FREQUENT BUT HAVE MOST OFTEN BEEN AROUND 20. PT APPEARS COMFORTABLE. NO NONVERBAL S/S OF PAIN. OCCASSIONALLY LEG OR ARM JERK SLIGHTLY WHILE LAYING IN BED. GAGE CATHETER IN PLACE. DRAINING, LOW OUTPUT BUT PT IS TAKING LITTLE TO NOTHING IN AT THIS POINT. OTHERWISE NO ACUTE CHANGES. WILL CONTINUE TO MONITOR AND REPORT TO DAY RN.
--- NOTE | 2018-04-12 17:17 | NUR ---
PATIENT TURNED Q 2 HOURS. BED BATH TODAY. WILL ASK FOR WATER. C/O PAIN ONCE;OTHERWISE, SLEEPING MOST OF SHIFT AND APPEARED VERY COMFORTABLE. IV LEFT UPPER ARM PATENT. BED IN LOW PSOTION. WILL CONTINUE TO MONITOR.
--- NOTE | 2018-04-12 17:59 | NUR ---
Mr. Schwartz was alone in room. He was not responsive and appeared comfortable and well cared-for. Provided prayer at bedside and will remain available to family.
--- NOTE | 2018-04-13 05:22 | NUR ---
SHIFT SUMMARY PT IS COMFORTABLE. PT MEDICATED PER EMAR.
--- NOTE | 2018-04-13 10:51 | NUR ---
IV NOT WORKING. ASKED FOR NO IV ASSESS ORDER AND TO D'C IV MEDS. OK FOR NO IV ASSESS AND SHE WILL LOOK AT EMAR WHEN SHE IS UP HERE.
--- NOTE | 2018-04-13 12:12 | NUR ---
PATIENT PASSED AT 1208. ATTEMPT TO REACH DR KAPLAN X TWO WITHOUT SUCCESS. V BELT CURER NOTIFIED. JAMES OCONNOR ASKED TO COME AND SEE FAMILY. JAMES IN ROOM WITH RELATIVES AT THIS TIME.
--- NOTE | 2018-04-13 16:53 | NUR ---
Present with family at [facility]. Family very tearful and expressive of grief/anger. Facilitated verbalization of anger. this led to open expression of sorrow. Spouse appears well supported by family. Provided prayer and gentle bereavement education/social services counselor to good effect.
== END 2018-04-13 12:08 | DRG 388 ==
LOC: ER 12:18 → MEDS 17:49
PROVIDERS: Internal Medicine; Physician Assistant; ADMIT Internal Medicine
PROC: 0W9G3ZX Drainage of Peritoneal Cavity, Percutaneous Approach, Diagnostic (ICD-10-PCS; principal; 2018-04-05)
DX: K56.7 Ileus, unspecified (principal); G93.41 Metabolic encephalopathy; C68.9 Malignant neoplasm of urinary organ, unspecified; N17.9 Acute kidney failure, unspecified; E44.0 Moderate protein-calorie malnutrition; R18.8 Other ascites; C78.01 Secondary malignant neoplasm of right lung; E87.1 Hypo-osmolality and hyponatremia; N39.0 Urinary tract infection, site not specified; Z68.1 Body mass index [BMI] 19.9 or less, adult; Z51.5 Encounter for palliative care; I48.0 Paroxysmal atrial fibrillation; R31.0 Gross hematuria; B96.5 Pseudomonas (aeruginosa) (mallei) (pseudomallei) as the cause of diseases classified elsewhere; K21.9 Gastro-esophageal reflux disease without esophagitis; N18.3 Chronic kidney disease, stage 3 (moderate); I25.10 Atherosclerotic heart disease of native coronary artery without angina pectoris; I12.9 Hypertensive chronic kidney disease with stage 1 through stage 4 chronic kidney disease, or unspecified chronic kidney disease; N20.0 Calculus of kidney; Z66 Do not resuscitate; K59.09 Other constipation; N32.0 Bladder-neck obstruction; R33.9 Retention of urine, unspecified; N40.1 Benign prostatic hyperplasia with lower urinary tract symptoms; R33.8 Other retention of urine; I95.1 Orthostatic hypotension; R62.7 Adult failure to thrive; F17.200 Nicotine dependence, unspecified, uncomplicated; I71.4 Abdominal aortic aneurysm, without rupture; Z96.0 Presence of urogenital implants; Z87.442 Personal history of urinary calculi; Z79.899 Other long term (current) drug therapy; Z79.82 Long term (current) use of aspirin; Z95.5 Presence of coronary angioplasty implant and graft
CPT/HCPCS: 36415; 49083; 51701; 51702; 71046; 71250; 74018; 74176; 80053; 80069; 81001; 82042; 82728; 82945; 82947; 83540; 83550; 83605; 83615; 83690; 83735; 83986; 84100; 84157; 84443; 84478; 85025; 85027; 85610; 85651; 85730; 87040; 87070; 87077; 87086; 87186; 87205; 88108; 88305; 88341; 88342; 89051; 92610; 96361; 96365; 96375; 96376; 97110; 97163; 97166; 97530; 99285-25; G0103; J0696; J0744; J1170; J1630; J1650; J2060; J2405; J2765; J3010; J3411; J7030; J7050; J7060